=== PATIENT | male | born 1965 | race Two or more races ===

== ENCOUNTER 2021-02-17 16:09 | Inpatient (IN) | payer MEDICARE ==
[~2021-02-17] VITALS: Ht 160 cm; Wt 61.9 kg
[2021-02-17 16:59] LABS: GLUCOSE,POINT OF CARE > 600 MG/DL (70-110)
[2021-02-17] MEDS ORDERED: ONDANSETRON HCL 4 MG/2 ML VIAL ONE (17:01)
[2021-02-17] MEDS ORDERED: SODIUM CHLORIDE 0.9% 1,000 ML IV ONE (17:15)
[2021-02-17] MEDS ORDERED: MORPHINE SULFATE 4 MG/ML SYRINGE IVP ONE (17:15)
[2021-02-17] MEDS ORDERED: ONDANSETRON HCL 4 MG/2 ML VIAL IVP ONE (17:15)
[2021-02-17] MEDS ORDERED: HALOPERIDOL LACTATE 5 MG/ML VIAL IVP ONE (17:45)
[2021-02-17] MEDS ORDERED: DiphenhydrAMINE HCL 50 MG/ML VIAL IVP ONE (17:45)
[2021-02-17 17:54] LABS: COVID AG,FIA SOURCE NASOPHARYNGEAL
[2021-02-17 17:59] LABS: BASOPHILS % (AUTO) 0.2 % (0.0-2.0); EOSINOPHILS % (AUTO) 0.1 % (1.0-6.0); HEMATOCRIT 43.5 % (41-53); HEMOGLOBIN 13.9 g/dL (13.5-17.5); LYMPHOCYTES # (AUTO) 1.1 K/uL (1.0-4.8); LYMPHOCYTES % (AUTO) 8.4 % (22.0-44.0); MEAN CORPUSCULAR HEMOGLOBIN 29.2 pg (26.0-34.0); MEAN CORPUSCULAR VOLUME 91 fL (80-100); MONOCYTES # (AUTO) 0.5 K/uL (0.1-1.0); MONOCYTES % (AUTO) 3.8 % (2.0-9.0); NEUTROPHILS % (AUTO) 87.5 % (40.0-70.0); PLATELET COUNT (AUTO) 152 K/uL (150-450); RED BLOOD CELL COUNT(AUTO) 4.77 MIL/uL (4.50-5.90); RED CELL DISTRIBUTION WIDTH 14.2 % (11.5-14.5)
[2021-02-17 18:08] LABS: ANION GAP 26 mmol/L (8-16); CALCIUM, TOTAL 9.4 mg/dL (8.8-10.5); CARBON DIOXIDE 24 mmol/L (22-29); CHLORIDE 93 mmol/L (98-107); CREATININE 1.87 mg/dL (0.60-1.30); GLOMERULAR FILTR. RATE CALC 38 mL/min (>60); POTASSIUM 4.4 mmol/L (3.5-5.1); SODIUM SERUM 143 mmol/L (136-145); UREA NITROGEN, BLOOD 34 mg/dL (7-18)
[2021-02-17 18:10] LABS: INR 1.1 (0.9-1.1); PROTHROMBIN TIME 11.5 SEC (9.4-11.6)
[2021-02-17 18:12] LABS: PLATELET MORPHOLOGY COMMENT GIANT PLTS PRESENT
[2021-02-17 18:14] LABS: ALANINE AMINOTRANSFERASE 37 U/L (12-78); ALBUMIN 4.3 g/dL (3.4-5.0); ALKALINE PHOSPHATASE 94 U/L (46-116); ASPARTATE AMINOTRANSFERASE 22 U/L (15-37); BILIRUBIN,TOTAL 0.9 mg/dL (0.1-1.0); TOTAL PROTEIN, SERUM 7.8 g/dL (6.4-8.2)
[2021-02-17 18:21] LABS: ACETONE,BLOOD 1:16 (NEGATIVE)
[2021-02-17 18:26] LABS: GLUCOSE,RANDOM 849 mg/dL (70-110); LACTIC ACID 2.9 mmol/L (0.4-2.0)
[2021-02-17] MEDS ORDERED: DEXTROSE 50%-WATER 25 GM/50 ML SYRINGE IVP PRN ×2 (18:30→19:45)
[2021-02-17] MEDS ORDERED: DEXTROSE 5%-0.45% SODIUM CHL 1,000 ML IV PRN ×2 (18:30→19:45)
[2021-02-17] MEDS ORDERED: SODIUM CHLORIDE 0.9% 1,000 ML IV SCH ×2 (18:30→19:45)
[2021-02-17] MEDS ORDERED: INSULIN REGULAR, HUMAN 100 UNITS in SODIUM CHLORIDE 0.9% 99 ML IV PRN ×2 (18:30)
[2021-02-17] MEDS ORDERED: INSULIN REGULAR, HUMAN 100 UNITS/ML IVP PRN (18:30)
[2021-02-17] MEDS ORDERED: POTASSIUM CHL 20 MEQ/0.45% NS 1,000 ML IV PRN ×2 (18:30→19:45)
[2021-02-17] MEDS ORDERED: SODIUM CHLORIDE 0.45% 1,000 ML IV PRN ×2 (18:30→19:45)
[2021-02-17] MEDS ORDERED: POTASSIUM CHLORIDE 40 MEQ in SODIUM CHLORIDE 0.45% 1,000 ML IV PRN ×2 (18:30→19:45)
[2021-02-17 18:37] LABS: ABG A-A DIFF O2 11.4 mmHg (10-20.0); ABG CARBOXYHEMOGLOBIN 0.4 % (0.0-1.5); ABG HCO3 22.3 mmol/L (22.0-26.0); ABG METHEMOGLOBIN 0.1 % (0.0-1.5); ABG OXYGEN CONTENT 18.4 mL/dL (15.0-23.0); ABG OXYGEN SATURATION 96.9 % (95.0-98.0); ABG OXYHEMOGLOBIN 96.4 % (94.0-100.0); ABG PCO2 37 mmHg (35-45); ABG PH 7.388 (7.35-7.450); ABG TOTAL HEMOGLOBIN 13.5 G/dL (12.0-18.0); PO2, ARTERIAL BG 93.9 mmHg (84.0-92.0); SITE, BLOOD GAS RT RADIAL; SOURCE, BLOOD GAS ARTERIAL; TEMPERATURE, FAHRENHEIT, BG 98.1 FAHREN (96.0-98.6)
[2021-02-17] MEDS ORDERED: SODIUM CHLORIDE 0.9% 2,300 ML IV ONE (18:45)
[2021-02-17] MEDS ORDERED: CefTRIAXone 1 GM/DEXTROSE 50 ML IV ONE (18:45)
[2021-02-17 19:06] LABS: LIPASE 22 U/L (73-393)
[2021-02-17 19:25] LABS: CALCIUM, TOTAL 8.8 mg/dL (8.8-10.5); CREATININE 1.87 mg/dL (0.60-1.30); POTASSIUM 4.4 mmol/L (3.5-5.1)
[2021-02-17] MEDS ORDERED: ONDANSETRON HCL 4 MG/2 ML VIAL IVP PRN (19:45)
[2021-02-17] MEDS ORDERED: ACETAMINOPHEN 325 MG TABLET PO PRN (19:45)
[2021-02-17] MEDS ORDERED: 0.9% SODIUM CHLORIDE 10 ML SYRINGE IVP PRN (19:45)
[2021-02-17 19:51] LABS: APPEARANCE,URINE CLEAR (CLEAR); BILIRUBIN,URINE NEGATIVE (NEGATIVE); GLUCOSE, URINE (UA) >=1000 mg/dL (NEGATIVE); KETONES,URINE >=80 mg/dL (NEGATIVE); LEUKOCYTE ESTERASE ,URINE NEGATIVE (NEGATIVE); NITRATE,URINE NEGATIVE (NEGATIVE); OCCULT BLOOD,URINE NEGATIVE (NEGATIVE); PH,URINE 6.5 (5.0-8.0); PROTEIN,URINE TRACE (NEGATIVE); UROBILINOGEN,URINE 0.2 mg/dL (<=1.0)
[2021-02-17 19:57] LABS: BACTERIA,URINE None Seen /HPF (None Seen); RBC,URINE 0-2 /HPF (0-2); SQUAMOUS EPITHELIAL CELL,UR Rare /LPF (None Seen); WBC,URINE 0-2 /HPF (0-5)
[2021-02-17] MEDS ORDERED: VANCOMYCIN HCL 1.25 GM in DEXTROSE 5%-WATER 250 ML IV ONE (20:00)
[2021-02-17] MEDS ORDERED: VANCOMYCIN HCL 1 GM/D5% WATER 200 ML IV ONE (20:00)
[2021-02-17] MEDS ORDERED: PIPERACILLIN/TAZO 3.375 GM/D5W 50 ML IV ONE (20:00)
[2021-02-17 21:49] LABS: GLUCOMETER DEV NAME(LOC) ERT.5; GLUCOSE,POINT OF CARE 534 MG/DL (70-110)
[2021-02-17 22:34] LABS: GLUCOMETER DEV NAME(LOC) ERT.5; GLUCOSE,POINT OF CARE 510 MG/DL (70-110)
[2021-02-17 22:52] LABS: CREATININE 1.74 mg/dL (0.60-1.30); POTASSIUM 3.7 mmol/L (3.5-5.1)
[2021-02-17] MEDS: INSULIN REGULAR, HUMAN 100 UNITS/ML IVP PRN ×2 (22:52→23:54)
[2021-02-17 22:53] LABS: CALCIUM, TOTAL 8.2 mg/dL (8.8-10.5)
[2021-02-17] MEDS: INSULIN REGULAR, HUMAN 100 UNITS in SODIUM CHLORIDE 0.9% 99 ML IV PRN ×4 (22:58→23:53)
[2021-02-17 23:52] LABS: GLUCOMETER DEV NAME(LOC) ERT.5; GLUCOSE,POINT OF CARE 417 MG/DL (70-110)
[2021-02-18] MEDS ORDERED: HEPARIN SODIUM,PORCINE 5,000 UNITS/ML VIAL SQ SCH
[2021-02-18] MEDS: PANTOPRAZOLE SODIUM 40 MG/VIAL IVP SCH ×3 (00:01→21:34)
[2021-02-18 00:41] LABS: GLUCOMETER DEV NAME(LOC) ERT.5; GLUCOSE,POINT OF CARE 367 MG/DL (70-110)
[2021-02-18] MEDS: INSULIN REGULAR, HUMAN 100 UNITS in SODIUM CHLORIDE 0.9% 99 ML IV PRN ×2 (00:47)
[2021-02-18] MEDS: INSULIN REGULAR, HUMAN 100 UNITS/ML IVP PRN (00:47)
[2021-02-18 01:46] LABS: GLUCOMETER DEV NAME(LOC) ERT.5; GLUCOSE,POINT OF CARE 247 MG/DL (70-110)
[2021-02-18 02:49] LABS: GLUCOMETER DEV NAME(LOC) ERT.5; GLUCOSE,POINT OF CARE 168 MG/DL (70-110)
[2021-02-18] MEDS: ONDANSETRON HCL 4 MG/2 ML VIAL IVP PRN (03:19)
[2021-02-18 03:29] LABS: CALCIUM, TOTAL 8.4 mg/dL (8.8-10.5); CREATININE 1.6 mg/dL (0.60-1.30)
[2021-02-18 03:33] LABS: POTASSIUM 3.1 mmol/L (3.5-5.1)
[2021-02-18 03:43] LABS: GLUCOMETER DEV NAME(LOC) ERT.5; GLUCOSE,POINT OF CARE 80 MG/DL (70-110)
[2021-02-18 04:17] LABS: GLUCOMETER DEV NAME(LOC) ERT.5; GLUCOSE,POINT OF CARE 53 MG/DL (70-110)
[2021-02-18] MEDS ORDERED: INSULIN LISPRO 100 UNITS/ML SQ PRN (04:45)
[2021-02-18] MEDS ORDERED: MORPHINE SULFATE 2 MG/ML SYRINGE IVP ONE (04:45)
[2021-02-18] MEDS ORDERED: INSULIN GLARGINE,HUM.REC.ANLOG 100 UNITS/ML SQ ONE (04:45)
[2021-02-18] MEDS ORDERED: POTASSIUM CHLORIDE 40 MEQ in SODIUM CHLORIDE 0.45% 1,000 ML IV ONE (04:45)
[2021-02-18] MEDS ORDERED: DEXTROSE 50%-WATER 25 GM/50 ML SYRINGE IVP PRN ×2 (04:45→08:45)
[2021-02-18] MEDS ORDERED: POTASSIUM CHLORIDE 40 MEQ in SODIUM CHLORIDE 0.45% 1,000 ML IV SCH (05:00)
[2021-02-18 05:09] LABS: GLUCOMETER DEV NAME(LOC) ERT.5; GLUCOSE,POINT OF CARE 140 MG/DL (70-110)
[2021-02-18] MEDS ORDERED: PIPERACILLIN/TAZO 3.375 GM/D5W 50 ML IV ONE (06:00)
[2021-02-18 06:59] LABS: GLUCOMETER DEV NAME(LOC) ERT.5; GLUCOSE,POINT OF CARE 169 MG/DL (70-110)
[2021-02-18] MEDS ORDERED: ASPIRIN 81 MG CHEWABLE TABLET PO ONE (07:15)
[2021-02-18] MEDS ORDERED: VANCOMYCIN HCL 1.25 GM in DEXTROSE 5%-WATER 250 ML IV SCH (08:00)
[2021-02-18 08:09] LABS: BASOPHILS % (AUTO) 0.3 % (0.0-2.0); EOSINOPHILS % (AUTO) 0 % (1.0-6.0); LYMPHOCYTES # (AUTO) 1.1 K/uL (1.0-4.8); MEAN CORPUSCULAR HEMOGLOBIN 29.1 pg (26.0-34.0); MEAN CORPUSCULAR HGB CONC 33.2 G/dL (31.0-37.0); MEAN CORPUSCULAR VOLUME 88 fL (80-100); MONOCYTES # (AUTO) 1.5 K/uL (0.1-1.0); MONOCYTES % (AUTO) 7.8 % (2.0-9.0); NEUTROPHILS # (AUTO) 15.9 K/uL (1.8-7.7); PLATELET COUNT (AUTO) 142 K/uL (150-450); RED CELL DISTRIBUTION WIDTH 13.9 % (11.5-14.5)
[2021-02-18 08:11] LABS: NEUTROPHILS % (AUTO) 85.9 % (40.0-70.0)
[2021-02-18 08:38] LABS: ALBUMIN 3.1 g/dL (3.4-5.0); BILIRUBIN,TOTAL 0.5 mg/dL (0.1-1.0); CREATININE 1.33 mg/dL (0.60-1.30); PHOSPHORUS 3.7 mg/dL (2.5-4.9); POTASSIUM 3.6 mmol/L (3.5-5.1)
[2021-02-18] MEDS ORDERED: VANCOMYCIN HCL 750 MG in DEXTROSE 5%-WATER 250 ML IV ONE (10:00)
[2021-02-18 10:02] VITALS: BP 166/96
[2021-02-18] MEDS ORDERED: PNEUMOCOCCAL VACCINE POLYVALENT 0.5 ML VIAL [PPSV23] IM. ONE (11:30)
[2021-02-18] MEDS ORDERED: INFLUENZA VIRUS VACCINE QVS 2021-22 (6MO+)/PF 60 MCG/0.5 ML SYRINGE IM. ONE (11:30)
[2021-02-18] MEDS ORDERED: SODIUM CHLORIDE 0.9% 250 ML IV ONE (11:54)
[2021-02-18] MEDS: INSULIN GLARGINE,HUM.REC.ANLOG 100 UNITS/ML SQ SCH ×2 (12:04→21:42)
[2021-02-18] MEDS: INSULIN LISPRO 100 UNITS/ML SQ PRN ×3 (12:06→21:43)
[2021-02-18 12:26] LABS: GLUCOMETER DEV NAME(LOC) 5S.1; GLUCOSE,POINT OF CARE 194 MG/DL (70-110)
[2021-02-18 12:30] VITALS: BP 142/79
[2021-02-18 12:55] LABS: ANION GAP 9 mmol/L (8-16); CALCIUM, TOTAL 8.8 mg/dL (8.8-10.5); CARBON DIOXIDE 28 mmol/L (22-29); CHLORIDE 103 mmol/L (98-107); CREATININE 1.16 mg/dL (0.60-1.30); GLOMERULAR FILTR. RATE CALC > 60 mL/min (>60); GLUCOSE,RANDOM 214 mg/dL (70-110); POTASSIUM 4.5 mmol/L (3.5-5.1); SODIUM SERUM 140 mmol/L (136-145); UREA NITROGEN, BLOOD 23 mg/dL (7-18)
[2021-02-18] MEDS: WATER IV SCH ×3 (15:39→23:34)
[2021-02-18] MEDS: TAZOBACTAM IV SCH ×3 (15:39→23:34)
[2021-02-18] MEDS: PIPERACILLIN SODIUM IV SCH ×3 (15:39→23:34)
[2021-02-18] MEDS: DEXTROSE 5% IV SCH ×3 (15:39→23:34)
[2021-02-18] MEDS: PB/HYOSCY/ATR/SCOP/LIDO/MAALOX 55 ML BOTTLE PO SCH ×2 (15:39→23:37)
[2021-02-18 19:52] VITALS: BP 157/89
[2021-02-18] MEDS ORDERED: SODIUM CHLORIDE 0.9% 100 ML ONE (19:52)
[2021-02-18] MEDS ORDERED: IOHEXOL 350 MG/ML 100 ML VIAL ONE (19:52)
[2021-02-18] MEDS: VANCOMYCIN HCL 750 MG in DEXTROSE 5%-WATER 250 ML IV SCH (20:23)
[2021-02-18 21:23] LABS: GLUCOMETER DEV NAME(LOC) 5N.1C; GLUCOSE,POINT OF CARE 175 MG/DL (70-110)
[2021-02-18] MEDS: MORPHINE SULFATE 2 MG/ML SYRINGE IVP PRN (21:48)
[2021-02-19 00:12] VITALS: BP 157/89
[2021-02-19] MEDS ORDERED: SODIUM CHLORIDE 0.9% 0 ML ONE (00:32)
[2021-02-19] MEDS: ONDANSETRON HCL 4 MG/2 ML VIAL IVP PRN (02:35)
[2021-02-19] MEDS: MORPHINE SULFATE 2 MG/ML SYRINGE IVP PRN ×2 (03:07→12:03)
[2021-02-19] MEDS: WATER IV SCH ×4 (04:55→23:15)
[2021-02-19] MEDS: PIPERACILLIN SODIUM IV SCH ×4 (04:55→23:15)
[2021-02-19] MEDS: DEXTROSE 5% IV SCH ×4 (04:55→23:15)
[2021-02-19] MEDS: TAZOBACTAM IV SCH ×4 (04:55→23:15)
[2021-02-19 05:10] VITALS: BP 151/92
[2021-02-19] MEDS: INSULIN LISPRO 100 UNITS/ML SQ PRN ×2 (05:17→21:07)
[2021-02-19] MEDS ORDERED: SODIUM CHLORIDE 0.9% 100 ML ONE ×2 (06:03→15:11)
[2021-02-19] MEDS ORDERED: IOHEXOL 350 MG/ML 100 ML VIAL ONE ×2 (06:03→15:11)
[2021-02-19 07:53] VITALS: BP 118/78
[2021-02-19] MEDS: PB/HYOSCY/ATR/SCOP/LIDO/MAALOX 55 ML BOTTLE PO SCH ×3 (08:00→23:15)
[2021-02-19] MEDS: INSULIN GLARGINE,HUM.REC.ANLOG 100 UNITS/ML SQ SCH ×2 (09:32→21:00)
[2021-02-19] MEDS: PANTOPRAZOLE SODIUM 40 MG/VIAL IVP SCH ×2 (11:15→21:10)
[2021-02-19] MEDS: VANCOMYCIN HCL 750 MG in DEXTROSE 5%-WATER 250 ML IV SCH ×2 (11:15→21:07)
[2021-02-19 11:19] VITALS: BP 150/87
[2021-02-19 12:14] LABS: GLUCOMETER DEV NAME(LOC) 5N.3; GLUCOSE,POINT OF CARE 188 MG/DL (70-110)
[2021-02-19] MEDS ORDERED: MORPHINE SULFATE 2 MG/ML SYRINGE IVP ONE (12:30)
[2021-02-19 15:52] VITALS: BP 122/77
[2021-02-19 16:28] LABS: ANION GAP 8 mmol/L (8-16); CALCIUM, TOTAL 8.4 mg/dL (8.8-10.5); CARBON DIOXIDE 31 mmol/L (22-29); CHLORIDE 100 mmol/L (98-107); CREATININE 0.78 mg/dL (0.60-1.30); GLOMERULAR FILTR. RATE CALC > 60 mL/min (>60); GLUCOSE,RANDOM 120 mg/dL (70-110); POTASSIUM 3.2 mmol/L (3.5-5.1); SODIUM SERUM 139 mmol/L (136-145); UREA NITROGEN, BLOOD 10 mg/dL (7-18)
[2021-02-19] MEDS ORDERED: POTASSIUM CHLORIDE 20 MEQ ER TABLET PO PRN (17:00)
[2021-02-19 17:15] LABS: GLUCOMETER DEV NAME(LOC) 5S.1; GLUCOSE,POINT OF CARE 156 MG/DL (70-110)
[2021-02-19 17:15] LABS: GLUCOMETER DEV NAME(LOC) 5S.1; GLUCOSE,POINT OF CARE 128 MG/DL (70-110)
[2021-02-19] MEDS: DEXTROSE 5%-0.45% SODIUM CHL 1,000 ML IV SCH (18:18)
[2021-02-19 20:00] VITALS: BP 147/85
[2021-02-19 20:44] LABS: GLUCOMETER DEV NAME(LOC) 5S.2B; GLUCOSE,POINT OF CARE 178 MG/DL (70-110)
[2021-02-20] VITALS (7 sets, daily range): BP systolic 98–154; BP diastolic 66–94
[2021-02-20] MEDS: ONDANSETRON HCL 4 MG/2 ML VIAL IVP PRN ×2 (00:27→09:40)
[2021-02-20] MEDS: MORPHINE SULFATE 2 MG/ML SYRINGE IVP PRN ×4 (00:28→23:17)
[2021-02-20] MEDS: POTASSIUM CHL 10 MEQ/WATER 50 ML IV PRN ×2 (01:10→03:39)
[2021-02-20 06:21] LABS: GLUCOMETER DEV NAME(LOC) 5S.1; GLUCOSE,POINT OF CARE 153 MG/DL (70-110)
[2021-02-20] MEDS: PIPERACILLIN SODIUM IV SCH ×4 (06:52→23:17)
[2021-02-20] MEDS: WATER IV SCH ×4 (06:52→23:17)
[2021-02-20] MEDS: TAZOBACTAM IV SCH ×4 (06:52→23:17)
[2021-02-20] MEDS: DEXTROSE 5% IV SCH ×4 (06:52→23:17)
[2021-02-20] MEDS: INSULIN LISPRO 100 UNITS/ML SQ PRN ×3 (06:53→20:18)
[2021-02-20] MEDS: PB/HYOSCY/ATR/SCOP/LIDO/MAALOX 55 ML BOTTLE PO SCH ×3 (08:00→23:11)
[2021-02-20] MEDS: VANCOMYCIN HCL 750 MG in DEXTROSE 5%-WATER 250 ML IV SCH ×2 (09:41→20:02)
[2021-02-20] MEDS: PANTOPRAZOLE SODIUM 40 MG/VIAL IVP SCH ×2 (09:47→20:02)
[2021-02-20] MEDS: INSULIN GLARGINE,HUM.REC.ANLOG 100 UNITS/ML SQ SCH ×2 (09:59→20:18)
[2021-02-20 11:31] LABS: BASOPHILS % (AUTO) 0.6 % (0.0-2.0); EOSINOPHILS % (AUTO) 0.4 % (1.0-6.0); HEMATOCRIT 38.3 % (41-53); HEMOGLOBIN 12.7 g/dL (13.5-17.5); LYMPHOCYTES # (AUTO) 1.2 K/uL (1.0-4.8); LYMPHOCYTES % (AUTO) 17.7 % (22.0-44.0); MEAN CORPUSCULAR HEMOGLOBIN 29.3 pg (26.0-34.0); MEAN CORPUSCULAR HGB CONC 33.2 G/dL (31.0-37.0); MEAN CORPUSCULAR VOLUME 88 fL (80-100); MONOCYTES # (AUTO) 0.5 K/uL (0.1-1.0); MONOCYTES % (AUTO) 8.2 % (2.0-9.0); NEUTROPHILS # (AUTO) 4.9 K/uL (1.8-7.7); NEUTROPHILS % (AUTO) 73.1 % (40.0-70.0); PLATELET COUNT (AUTO) 111 K/uL (150-450); RED BLOOD CELL COUNT(AUTO) 4.34 MIL/uL (4.50-5.90); RED CELL DISTRIBUTION WIDTH 13.8 % (11.5-14.5)
[2021-02-20 12:10] LABS: ANION GAP 12 mmol/L (8-16); CARBON DIOXIDE 26 mmol/L (22-29); CHLORIDE 100 mmol/L (98-107); GLOMERULAR FILTR. RATE CALC > 60 mL/min (>60); GLUCOSE,RANDOM 261 mg/dL (70-110); POTASSIUM 3.3 mmol/L (3.5-5.1); SODIUM SERUM 138 mmol/L (136-145); UREA NITROGEN, BLOOD 10 mg/dL (7-18); VANCOMYCIN,RANDOM 23.5 mcg/mL (25.0-50.0)
[2021-02-20] MEDS: DEXTROSE 5%-0.45% SODIUM CHL 1,000 ML IV SCH (17:05)
[2021-02-20 17:41] LABS: GLUCOMETER DEV NAME(LOC) 5S.2B; GLUCOSE,POINT OF CARE 272 MG/DL (70-110)
[2021-02-20 20:15] LABS: GLUCOMETER DEV NAME(LOC) 5N.3; GLUCOSE,POINT OF CARE 120 MG/DL (70-110)
[2021-02-21] VITALS (7 sets, daily range): BP systolic 96–134; BP diastolic 62–93
[2021-02-21] MEDS: POTASSIUM CHL 10 MEQ/WATER 50 ML IV PRN ×2 (00:39→03:34)
[2021-02-21 03:59] LABS: GLUCOMETER DEV NAME(LOC) 5S.1; GLUCOSE,POINT OF CARE 211 MG/DL (70-110)
[2021-02-21 03:59] LABS: GLUCOMETER DEV NAME(LOC) 5S.1; GLUCOSE,POINT OF CARE 125 MG/DL (70-110)
[2021-02-21 04:17] LABS: GLUCOMETER DEV NAME(LOC) 5S.2B; GLUCOSE,POINT OF CARE 65 MG/DL (70-110)
[2021-02-21] MEDS: MORPHINE SULFATE 2 MG/ML SYRINGE IVP PRN ×3 (05:29→18:53)
[2021-02-21 06:32] LABS: GLUCOMETER DEV NAME(LOC) 5S.2B; GLUCOSE,POINT OF CARE 131 MG/DL (70-110)
[2021-02-21] MEDS: PIPERACILLIN SODIUM IV SCH ×4 (06:38→23:22)
[2021-02-21] MEDS: TAZOBACTAM IV SCH ×4 (06:38→23:22)
[2021-02-21] MEDS: INSULIN LISPRO 100 UNITS/ML SQ PRN ×2 (06:38→18:08)
[2021-02-21] MEDS: DEXTROSE 5% IV SCH ×4 (06:38→23:22)
[2021-02-21] MEDS: WATER IV SCH ×4 (06:38→23:22)
[2021-02-21 06:57] LABS: ANION GAP 6 mmol/L (8-16); CALCIUM, TOTAL 8.4 mg/dL (8.8-10.5); CARBON DIOXIDE 29 mmol/L (22-29); CHLORIDE 103 mmol/L (98-107); GLOMERULAR FILTR. RATE CALC > 60 mL/min (>60); GLUCOSE,RANDOM 133 mg/dL (70-110); POTASSIUM 3.3 mmol/L (3.5-5.1); SODIUM SERUM 138 mmol/L (136-145); UREA NITROGEN, BLOOD 5 mg/dL (7-18); VANCOMYCIN,RANDOM 11.5 mcg/mL (25.0-50.0)
[2021-02-21] MEDS: PB/HYOSCY/ATR/SCOP/LIDO/MAALOX 55 ML BOTTLE PO SCH ×3 (08:00→23:29)
[2021-02-21] MEDS: PANTOPRAZOLE SODIUM 40 MG/VIAL IVP SCH ×2 (09:39→20:43)
[2021-02-21] MEDS: VANCOMYCIN HCL 750 MG in DEXTROSE 5%-WATER 250 ML IV SCH ×2 (09:40→17:41)
[2021-02-21] MEDS: INSULIN GLARGINE,HUM.REC.ANLOG 100 UNITS/ML SQ SCH ×2 (09:41→20:46)
[2021-02-21 13:59] LABS: GLUCOMETER DEV NAME(LOC) 5N.1C; GLUCOSE,POINT OF CARE 107 MG/DL (70-110)
[2021-02-21] MEDS: DEXTROSE 5%-0.45% SODIUM CHL 1,000 ML IV SCH (18:53)
[2021-02-22 00:08] LABS: GLUCOMETER DEV NAME(LOC) 5N.1C; GLUCOSE,POINT OF CARE 53 MG/DL (70-110)
[2021-02-22 00:08] LABS: GLUCOMETER DEV NAME(LOC) 5N.1C; GLUCOSE,POINT OF CARE 166 MG/DL (70-110)
[2021-02-22] MEDS: VANCOMYCIN HCL 750 MG in DEXTROSE 5%-WATER 250 ML IV SCH ×3 (00:43→16:08)
[2021-02-22 02:06] LABS: GLUCOMETER DEV NAME(LOC) 5S.1; GLUCOSE,POINT OF CARE 125 MG/DL (70-110)
[2021-02-22 03:39] VITALS: BP 125/76
[2021-02-22] MEDS: MORPHINE SULFATE 2 MG/ML SYRINGE IVP PRN ×3 (03:48→17:05)
[2021-02-22] MEDS: WATER IV SCH ×3 (05:23→17:59)
[2021-02-22] MEDS: TAZOBACTAM IV SCH ×3 (05:23→17:59)
[2021-02-22] MEDS: PIPERACILLIN SODIUM IV SCH ×3 (05:23→17:59)
[2021-02-22] MEDS: DEXTROSE 5% IV SCH ×3 (05:23→17:59)
[2021-02-22] MEDS: INSULIN LISPRO 100 UNITS/ML SQ PRN ×4 (05:29→20:32)
[2021-02-22 07:00] LABS: ANION GAP 7 mmol/L (8-16); CALCIUM, TOTAL 8.1 mg/dL (8.8-10.5); CARBON DIOXIDE 29 mmol/L (22-29); CHLORIDE 104 mmol/L (98-107); CREATININE 0.99 mg/dL (0.60-1.30); GLOMERULAR FILTR. RATE CALC > 60 mL/min (>60); GLUCOSE,RANDOM 254 mg/dL (70-110); POTASSIUM 4.1 mmol/L (3.5-5.1); SODIUM SERUM 140 mmol/L (136-145); UREA NITROGEN, BLOOD 9 mg/dL (7-18)
[2021-02-22 07:31] VITALS: BP 116/82
[2021-02-22 08:00] LABS: GLUCOMETER DEV NAME(LOC) 5S.1; GLUCOSE,POINT OF CARE 240 MG/DL (70-110)
[2021-02-22] MEDS: PB/HYOSCY/ATR/SCOP/LIDO/MAALOX 55 ML BOTTLE PO SCH ×2 (08:00→15:18)
[2021-02-22] MEDS: PANTOPRAZOLE SODIUM 40 MG/VIAL IVP SCH ×2 (08:58→20:31)
[2021-02-22] MEDS: INSULIN GLARGINE,HUM.REC.ANLOG 100 UNITS/ML SQ SCH ×2 (09:00→20:31)
[2021-02-22 09:25] LABS: GLUCOMETER DEV NAME(LOC) 5S.1; GLUCOSE,POINT OF CARE 133 MG/DL (70-110)
[2021-02-22 10:24] VITALS: BP 130/74
[2021-02-22 10:56] VITALS: BP 129/75
[2021-02-22 12:00] LABS: GLUCOMETER DEV NAME(LOC) 5S.1; GLUCOSE,POINT OF CARE 240 MG/DL (70-110)
[2021-02-22 15:12] VITALS: BP 116/58
[2021-02-22 17:30] LABS: GLUCOMETER DEV NAME(LOC) 5N.1C; GLUCOSE,POINT OF CARE 225 MG/DL (70-110)
[2021-02-22] MEDS ORDERED: SULF-261 PO (18:38)
[2021-02-22] MEDS ORDERED: INSLAN SQ (18:38)
[2021-02-22] MEDS ORDERED: CEPH500C3 PO (18:38)
[2021-02-22 20:45] VITALS: BP 111/66
[2021-02-23 05:47] LABS: GLUCOMETER DEV NAME(LOC) 5N.3; GLUCOSE,POINT OF CARE 145 MG/DL (70-110)
== END 2021-02-22 22:00 | disposition home or self-care (01) | DRG 871 ==
LOC: EMS 16:09 → 5S 02-18 05:41
PROVIDERS: ADMIT Internal Medicine; ATTEND Internal Medicine
PROC: 05HY33Z Insertion of Infusion Device into Upper Vein, Percutaneous Approach (ICD-10-PCS; principal; 2021-02-20)
DX: A41.9 Sepsis, unspecified organism (principal); E11.10 Type 2 diabetes mellitus with ketoacidosis without coma; E43 Unspecified severe protein-calorie malnutrition; N17.9 Acute kidney failure, unspecified; E87.0 Hyperosmolality and hypernatremia; I73.89 Other specified peripheral vascular diseases; Z20.822 Contact with and (suspected) exposure to COVID-19; E78.5 Hyperlipidemia, unspecified; S30.0XXA Contusion of lower back and pelvis, initial encounter; X58.XXXA Exposure to other specified factors, initial encounter; M19.90 Unspecified osteoarthritis, unspecified site; E87.6 Hypokalemia; Z90.49 Acquired absence of other specified parts of digestive tract; Z68.22 Body mass index [BMI] 22.0-22.9, adult; Z79.4 Long term (current) use of insulin; Z68.24 Body mass index [BMI] 24.0-24.9, adult; Z91.19 Patient's noncompliance with other medical treatment and regimen; Z88.8 Allergy status to other drugs, medicaments and biological substances; Y93.89 Activity, other specified; Y92.89 Other specified places as the place of occurrence of the external cause; Y99.8 Other external cause status
CPT/HCPCS: 36245; 36569; 36600; 71045; 74176; 74177; 76937; 80048; 80053; 80202; 81001; 82009; 82271; 82805; 82962; 83605; 83690; 83735; 83930; 84100; 84484; 85025; 85610; 85730; 86850; 86900; 86901; 87040; 93005; 99285; C9113; G0378; G0480; J0696; J1200; J1630; J1815; J2270; J2405; J2543; J3370; J3480; J7030; J7050; J7060; Q9967; 36415-L1; 36415-TC